=== PATIENT | female | born 1975 | race Caucasian/White ===

== ENCOUNTER 2017-11-14 12:56 | Outpatient (CLI) | payer BC | END 2017-11-14 12:57 | disposition home or self-care (01) | LOC: BICMAMMO 12:56 | PROVIDERS: ATTEND Family Medicine | DX: Z12.31 Encounter for screening mammogram for malignant neoplasm of breast (principal) | CPT/HCPCS: 77063; 77067 ==

== ENCOUNTER 2018-12-21 15:10 | Outpatient (CLI) | payer BC ==
--- NOTE | 2018-12-21 15:46 | BD ---
EXAM: DEXA bone density examination HISTORY: 43-year-old female with osteoporosis for screening COMPARISON: None FINDINGS: L1--bone mineral density 0.936 g/sq cm; T score -0.5 L2--bone mineral density 1.003 g/sq cm; T score -0.2 L3--bone mineral density 1.053 g/sq cm; T score -0.3 L4--bone mineral density 0.998 g/sq cm; T score -0.6 Total L1-L4--bone mineral density 1.000 g/sq cm; T score -0.4 Left femoral neck--bone mineral density0.822; T score -0.2 Total proximal left femur--bone mineral density 1.007; T score 0.5 IMPRESSION: Normal bone density
--- NOTE | 2018-12-21 16:14 | MMO ---
Bilateral MAMMO Bilat Screen [facility]. CLINICAL HISTORY: Patient is 43 years old and is seen for screening. The patient has no family history of breast cancer. The patient has no personal history of cancer. VIEWS: The views performed were: bilateral craniocaudal with tomosynthesis and bilateral mediolateral oblique with tomosynthesis. FILMS COMPARED: The present examination has been compared to prior imaging studies performed at [facility] on 11/21/2014 and 11/14/2017, and at [facility] on 03/09/2010. MAMMOGRAM FINDINGS: There are scattered fibroglandular densities. There are no suspicious masses, suspicious calcifications, or new areas of architectural distortion. IMPRESSION: THERE IS NO MAMMOGRAPHIC EVIDENCE OF MALIGNANCY. A ROUTINE FOLLOW-UP MAMMOGRAM IN 1 YEAR IS RECOMMENDED. THE RESULTS OF THIS EXAM WERE SENT TO THE PATIENT. ACR BI-RADS Category 1 - Negative MAMMOGRAPHY NOTE: 1. A negative mammogram report should not delay a biopsy if a dominant of clinically suspicious mass is present. 2. Approximately 10% to 15% of breast cancers are not detected by mammography. 3. Adenosis and dense breasts may obscure an underlying neoplasm. Reported by: HETAL RICHARDSON MD Electonically Signed: [id number]
== END 2018-12-21 15:11 | disposition home or self-care (01) ==
LOC: BICMAMMO 15:10
PROVIDERS: ATTEND Family Medicine
DX: Z12.31 Encounter for screening mammogram for malignant neoplasm of breast (principal); Z13.820 Encounter for screening for osteoporosis
CPT/HCPCS: 77063; 77067; 77080